=== PATIENT | male | born 1955 | race Caucasian/White ===

== ENCOUNTER → 2016-10-14 | Outpatient (CLI) | payer OTHER ==
[~2016-10-14] MED LIST: CLON0.2T PO; COCO1OIL2 PO; FERR325T5 PO; FLUO40CA8 PO; LAMO150T PO; LORA-741 PO; NIFE60TA57 PO; PRAV20TA PO; PRLSR20 PO; TAMS0.4C38 PO; TRIA1SPR4 NAE; WARF4TAB PO
[2016-10-14 12:58] LABS: PROTHROMBIN TIME (PATIENT) 94.5 SECONDS (9.0-12.0)
[2016-10-14 13:01] LABS: INR 8.1 (0.9-1.1)
== END | disposition home or self-care (01) ==
LOC: C.LABWYN 12:41
PROVIDERS: ATTEND Nurse Practitioner Family
DX: I82.409 Acute embolism and thrombosis of unspecified deep veins of unspecified lower extremity (principal); I26.99 Other pulmonary embolism without acute cor pulmonale

== ENCOUNTER → 2016-10-15 | Outpatient (CLI) | payer OTHER ==
[~2016-10-15] MED LIST changes: -LAMO150T PO; +LAMO150T32 PO; +OSEL75CA12 PO
[2016-10-15 08:17] LABS: PROTHROMBIN TIME (PATIENT) 66.8 SECONDS (9.0-12.0)
[2016-10-15 08:25] LABS: INR 5.8 (0.9-1.1)
--- NOTE | 2016-10-24 09:43 | CODING QUERY NO DIAGNOSIS ---
: 1955 TREATMENT RENDERED WITHOUT A DIAGNOSIS To promote full compliance with coding requirements relating to patient care, physician participation is requested in all cases of manager willow uncertainty. Please assist us with providing a diagnosis/symptom for the test(s) below: A diagnosis/symptom was not documented on your Order. A valid diagnosis/symptom is required to bill all insurances. Please remember that we are unable to code a diagnosis of rule out, probable, possible, questionable, or suspected. Tests that require a diagnosis: * PT/INR DOS: 10/15/16 DIAGNOSIS: Provider Signature: Date: Thank you Frida Gomez [employer] [facility] Information Management Once completed, please kindly fax back to [phone] For questions please call [phone]
== END | disposition home or self-care (01) ==
LOC: C.LABWYN 07:48
PROVIDERS: ATTEND Nurse Practitioner Family
DX: R79.1 Abnormal coagulation profile (principal); I82.409 Acute embolism and thrombosis of unspecified deep veins of unspecified lower extremity

== ENCOUNTER → 2016-10-16 | Outpatient (CLI) | payer OTHER ==
[2016-10-16 12:46] LABS: INR 1.4 (0.9-1.1); PROTHROMBIN TIME (PATIENT) 15.2 SECONDS (9.0-12.0)
--- NOTE | 2016-10-22 13:38 | CODING QUERY NO DIAGNOSIS ---
TREATMENT RENDERED WITHOUT A DIAGNOSIS 53 To promote full compliance with coding requirements relating to patient care, physician participation is requested in all cases of master craftsman uncertainty. Please assist us with providing a diagnosis/symptom for the test(s) below: A diagnosis/symptom was not documented on your Order. A valid diagnosis/symptom is required to bill all insurances. Please remember that we are unable to code a diagnosis of rule out, probable, possible, questionable, or suspected. DOS 10/16/16 Tests that require a diagnosis: * PT/INR DIAGNOSIS: Provider Signature: Date: Thank you [facility] Information Management Once completed, please kindly fax back to [phone] For questions please call [phone]
== END | disposition home or self-care (01) ==
LOC: C.LABWYN 14:34
PROVIDERS: ATTEND Internal Medicine
DX: I82.409 Acute embolism and thrombosis of unspecified deep veins of unspecified lower extremity (principal); I26.99 Other pulmonary embolism without acute cor pulmonale

== ENCOUNTER → 2016-10-23 | Outpatient (CLI) | payer OTHER ==
[~2016-10-23] MED LIST changes: -OSEL75CA12 PO
[2016-10-23 12:38] LABS: INR 2.2 (0.9-1.1)
== END | disposition home or self-care (01) ==
LOC: C.LABWYN 12:43
PROVIDERS: ATTEND Internal Medicine
DX: Z51.81 Encounter for therapeutic drug level monitoring (principal); Z79.01 Long term (current) use of anticoagulants

== ENCOUNTER → 2016-10-28 | Outpatient (CLI) | payer OTHER ==
[2016-10-28 12:46] LABS: ALT/SGPT 32 U/L (12-78); AST/SGOT 14 U/L (15-37); BLOOD UREA NITROGEN 27 mg/dl (7-18); CALCIUM 9.3 mg/dl (8.5-10.1); CARBON DIOXIDE 29 mmol/L (21-32); CHLORIDE 109 mmol/L (98-107); GLUCOSE 95 mg/dl (70-99); POTASSIUM 3.9 mmol/L (3.5-5.1); SODIUM 144 mmol/L (136-145)
[2016-10-28 12:49] LABS: ALB/GLOB RATIO 0.8 (0.9-2); ALKALINE PHOSPHATASE 83 U/L (45-117)
== END | disposition home or self-care (01) ==
LOC: C.LABWYN 10:57
PROVIDERS: ATTEND Student in an Organized Health Care Education/Training Program
DX: Z79.899 Other long term (current) drug therapy (principal)

== ENCOUNTER → 2016-11-13 | Outpatient (CLI) | payer OTHER ==
[2016-11-13 10:45] LABS: INR 5.5 (0.9-1.1); PROTHROMBIN TIME (PATIENT) 63.6 SECONDS (9.0-12.0)
== END | disposition home or self-care (01) ==
LOC: C.LABWYN 09:25
PROVIDERS: ATTEND Internal Medicine
DX: I48.91 Unspecified atrial fibrillation (principal)

== ENCOUNTER → 2016-11-17 | Outpatient (CLI) | payer OTHER ==
[2016-11-17 17:33] LABS: INR 2.3 (0.9-1.1); PROTHROMBIN TIME (PATIENT) 25.5 SECONDS (9.0-12.0)
== END | disposition home or self-care (01) ==
LOC: C.LABWYN 11:22
PROVIDERS: ATTEND Nurse Practitioner Family
DX: I82.409 Acute embolism and thrombosis of unspecified deep veins of unspecified lower extremity (principal); I26.99 Other pulmonary embolism without acute cor pulmonale

== ENCOUNTER → 2016-11-21 | Outpatient (CLI) | payer OTHER ==
[2016-11-21 08:53] LABS: INR 1.4 (0.9-1.1); PROTHROMBIN TIME (PATIENT) 15.4 SECONDS (9.0-12.0)
== END ==
LOC: C.LABWYN 08:04
PROVIDERS: ATTEND Nurse Practitioner Family
DX: I26.99 Other pulmonary embolism without acute cor pulmonale (principal); I82.409 Acute embolism and thrombosis of unspecified deep veins of unspecified lower extremity

== ENCOUNTER → 2016-11-24 | Outpatient (CLI) | payer OTHER ==
[2016-11-24 08:28] LABS: INR 1.8 (0.9-1.1); PROTHROMBIN TIME (PATIENT) 19.4 SECONDS (9.0-12.0)
== END | disposition home or self-care (01) ==
LOC: C.LABWYN 07:49
PROVIDERS: ATTEND Nurse Practitioner Family
DX: I82.409 Acute embolism and thrombosis of unspecified deep veins of unspecified lower extremity (principal); Z79.01 Long term (current) use of anticoagulants; Z51.81 Encounter for therapeutic drug level monitoring

== ENCOUNTER → 2016-12-09 | Outpatient (CLI) | payer OTHER ==
[2016-12-09 12:30] LABS: INR 3.4 (0.9-1.1); PROTHROMBIN TIME (PATIENT) 38.3 SECONDS (9.0-12.0)
== END | disposition home or self-care (01) ==
LOC: C.LABWYN 15:00
PROVIDERS: ATTEND Nurse Practitioner Family
DX: I26.99 Other pulmonary embolism without acute cor pulmonale (principal); I82.409 Acute embolism and thrombosis of unspecified deep veins of unspecified lower extremity

== ENCOUNTER → 2016-12-11 | Outpatient (CLI) | payer OTHER ==
[2016-12-11 12:28] LABS: INR 2.1 (0.9-1.1); PROTHROMBIN TIME (PATIENT) 23.1 SECONDS (9.0-12.0)
== END | disposition home or self-care (01) ==
LOC: C.LABWYN 17:48
PROVIDERS: ATTEND Internal Medicine
DX: Z51.81 Encounter for therapeutic drug level monitoring (principal); Z79.01 Long term (current) use of anticoagulants

== ENCOUNTER → 2016-12-16 | Outpatient (CLI) | payer OTHER ==
[2016-12-16 12:52] LABS: BLOOD UREA NITROGEN 28 mg/dl (7-18); BUN/CREATININE RATIO 11.2 (10-20); CALCIUM 9.5 mg/dl (8.5-10.1); CARBON DIOXIDE 25 mmol/L (21-32); CHLORIDE 108 mmol/L (98-107); GLUCOSE 94 mg/dl (70-99); POTASSIUM 4.3 mmol/L (3.5-5.1); SODIUM 144 mmol/L (136-145)
== END | disposition home or self-care (01) ==
LOC: C.LABWYN 09:58
PROVIDERS: ATTEND Student in an Organized Health Care Education/Training Program
DX: Z79.899 Other long term (current) drug therapy (principal)

== ENCOUNTER → 2016-12-18 | Outpatient (CLI) | payer OTHER ==
[2016-12-18 13:03] LABS: INR 1.5 (0.9-1.1); PROTHROMBIN TIME (PATIENT) 16.4 SECONDS (9.0-12.0)
== END | disposition home or self-care (01) ==
LOC: C.LABWYN 12:59
PROVIDERS: ATTEND Internal Medicine
DX: I82.409 Acute embolism and thrombosis of unspecified deep veins of unspecified lower extremity (principal); I26.99 Other pulmonary embolism without acute cor pulmonale

== ENCOUNTER → 2016-12-25 | Outpatient (CLI) | payer OTHER ==
[2016-12-25 13:42] LABS: INR 1.9 (0.9-1.1); PROTHROMBIN TIME (PATIENT) 20.5 SECONDS (9.0-12.0)
== END | disposition home or self-care (01) ==
LOC: C.LABWYN 07:15
PROVIDERS: ATTEND Internal Medicine
DX: I48.91 Unspecified atrial fibrillation (principal)

== ENCOUNTER → 2017-01-15 | Outpatient (CLI) | payer OTHER ==
[2017-01-15 12:56] LABS: BLOOD UREA NITROGEN 31 mg/dl (7-18); CALCIUM 9.2 mg/dl (8.5-10.1); CARBON DIOXIDE 26 mmol/L (21-32); CHLORIDE 108 mmol/L (98-107); GLUCOSE 93 mg/dl (70-99); POTASSIUM 4.6 mmol/L (3.5-5.1); SODIUM 141 mmol/L (136-145)
[2017-01-15 12:59] LABS: PROTHROMBIN TIME (PATIENT) 33.8 SECONDS (9.0-12.0)
== END | disposition home or self-care (01) ==
LOC: C.LABWYN 11:38
PROVIDERS: ATTEND Internal Medicine
DX: I82.409 Acute embolism and thrombosis of unspecified deep veins of unspecified lower extremity (principal); I26.99 Other pulmonary embolism without acute cor pulmonale; Z79.899 Other long term (current) drug therapy

== ENCOUNTER → 2017-01-29 | Outpatient (CLI) | payer OTHER ==
[2017-01-29 12:12] LABS: INR 2.8 (0.9-1.1); PROTHROMBIN TIME (PATIENT) 31.8 SECONDS (9.0-12.0)
== END | disposition home or self-care (01) ==
LOC: C.LABWYN 08:00
PROVIDERS: ATTEND Internal Medicine
DX: I82.409 Acute embolism and thrombosis of unspecified deep veins of unspecified lower extremity (principal); I26.99 Other pulmonary embolism without acute cor pulmonale

== ENCOUNTER → 2017-02-12 | Outpatient (CLI) | payer OTHER ==
[2017-02-12 12:34] LABS: INR 3.4 (0.9-1.1); PROTHROMBIN TIME (PATIENT) 38.5 SECONDS (9.0-12.0)
[2017-02-12 13:14] LABS: BLOOD UREA NITROGEN 36 mg/dl (7-18); BUN/CREATININE RATIO 13.7 (10-20); CALCIUM 9.1 mg/dl (8.5-10.1); CARBON DIOXIDE 27 mmol/L (21-32); CHLORIDE 111 mmol/L (98-107); GLUCOSE 86 mg/dl (70-99); POTASSIUM 4.3 mmol/L (3.5-5.1); SODIUM 145 mmol/L (136-145)
== END | disposition home or self-care (01) ==
LOC: C.LABWYN 09:41
PROVIDERS: ATTEND Internal Medicine
DX: I26.99 Other pulmonary embolism without acute cor pulmonale (principal); I82.409 Acute embolism and thrombosis of unspecified deep veins of unspecified lower extremity

== ENCOUNTER → 2017-02-19 | Outpatient (CLI) | payer OTHER ==
[2017-02-19 12:22] LABS: INR 1.2 (0.9-1.1); PROTHROMBIN TIME (PATIENT) 12.6 SECONDS (9.0-12.0)
== END | disposition home or self-care (01) ==
LOC: C.LABWYN 12:46
PROVIDERS: ATTEND Internal Medicine
DX: I82.409 Acute embolism and thrombosis of unspecified deep veins of unspecified lower extremity (principal); I26.99 Other pulmonary embolism without acute cor pulmonale

== ENCOUNTER → 2017-02-24 | Outpatient (CLI) | payer OTHER ==
[2017-02-24 12:32] LABS: INR 1.5 (0.9-1.1); PROTHROMBIN TIME (PATIENT) 16.1 SECONDS (9.0-12.0)
== END | disposition home or self-care (01) ==
LOC: C.LABWYN 09:03
PROVIDERS: ATTEND Internal Medicine
DX: I26.99 Other pulmonary embolism without acute cor pulmonale (principal); I82.409 Acute embolism and thrombosis of unspecified deep veins of unspecified lower extremity

== ENCOUNTER → 2017-03-03 | Outpatient (CLI) | payer OTHER ==
[2017-03-03 12:42] LABS: BASO % 0.4 %; BASO ABS # 0.03 K/uL (0-0.2); COMPLETE YES; EOS % 1.4 %; HEMATOCRIT 35.7 % (42-52); IG% 0.4 %; LYMPH % 14.1 %; LYMPH ABS # 1.11 K/uL (1.2-3.4); MEAN CELL VOLUME 90.2 fL (80-100); MEAN CORPUSCULAR HEMOGLOBIN 29.3 pg (25-34); MEAN CORPUSCULAR HGB CONC 32.5 g/dl (32-36); MEAN PLATELET VOLUME 9.3 fL (7.4-10.4); MONO % 10.1 %; NEUT % 73.6 %; PLATELET COUNT 403 K/uL (130-400); RED BLOOD COUNT 3.96 M/uL (4.7-6.1)
[2017-03-03 14:51] LABS: BLOOD UREA NITROGEN 32 mg/dl (7-18); BUN/CREATININE RATIO 11.3 (10-20); CALCIUM 9.3 mg/dl (8.5-10.1); CARBON DIOXIDE 27 mmol/L (21-32); CHLORIDE 109 mmol/L (98-107); GLUCOSE 87 mg/dl (70-99); HDL CHOLESTEROL 54 mg/dl; POTASSIUM 4.3 mmol/L (3.5-5.1); SODIUM 144 mmol/L (136-145); TRIGLYCERIDES 146 mg/dl (0-150); VERY LOW DENSITY LIPOPROT CALC 29 mg/dl
[2017-03-03 15:01] LABS: CHOLESTEROL 176 mg/dl (0-200); CHOLESTEROL/HDL RATIO 3.3; LDL CHOLESTEROL CALCULATED 93 mg/dl; THYROID STIMULATING HORMONE 0.603 uIu/ml (0.300-4.500)
== END | disposition home or self-care (01) ==
LOC: C.LABWYN 10:36
PROVIDERS: ATTEND Student in an Organized Health Care Education/Training Program
DX: Z79.899 Other long term (current) drug therapy (principal)

== ENCOUNTER → 2017-03-05 | Outpatient (CLI) | payer OTHER ==
[2017-03-05 12:20] LABS: INR 1.3 (0.9-1.1); PROTHROMBIN TIME (PATIENT) 14.3 SECONDS (9.0-12.0)
== END | disposition home or self-care (01) ==
LOC: C.LABWYN 15:57
PROVIDERS: ATTEND Internal Medicine
DX: I82.409 Acute embolism and thrombosis of unspecified deep veins of unspecified lower extremity (principal); I26.99 Other pulmonary embolism without acute cor pulmonale

== ENCOUNTER → 2017-03-19 | Outpatient (CLI) | payer OTHER ==
[2017-03-19 12:25] LABS: INR 2.7 (0.9-1.1); PROTHROMBIN TIME (PATIENT) 30.4 SECONDS (9.0-12.0)
== END | disposition home or self-care (01) ==
LOC: C.LABWYN 13:38
PROVIDERS: ATTEND Internal Medicine
DX: Z79.01 Long term (current) use of anticoagulants (principal)

== ENCOUNTER → 2017-03-26 | Outpatient (CLI) | payer OTHER ==
[2017-03-26 12:23] LABS: INR 4.1 (0.9-1.1); PROTHROMBIN TIME (PATIENT) 46.1 SECONDS (9.0-12.0)
== END | disposition home or self-care (01) ==
LOC: C.LABWYN 12:03
PROVIDERS: ATTEND Internal Medicine
DX: I26.99 Other pulmonary embolism without acute cor pulmonale (principal)

== ENCOUNTER → 2017-03-31 | Outpatient (CLI) | payer OTHER ==
[2017-03-31 13:39] LABS: PROTHROMBIN TIME (PATIENT) 22.6 SECONDS (9.0-12.0)
== END | disposition home or self-care (01) ==
LOC: C.LABWYN 15:08
PROVIDERS: ATTEND Internal Medicine
DX: I26.99 Other pulmonary embolism without acute cor pulmonale (principal); I82.409 Acute embolism and thrombosis of unspecified deep veins of unspecified lower extremity

== ENCOUNTER → 2017-04-30 | Outpatient (CLI) | payer OTHER ==
[2017-04-30 12:48] LABS: INR 1.8 (0.9-1.1); PROTHROMBIN TIME (PATIENT) 19.4 SECONDS (9.0-12.0)
--- NOTE | 2017-05-04 14:26 | CODING QUERY NO DIAGNOSIS ---
TREATMENT RENDERED WITHOUT A DIAGNOSIS To promote full compliance with coding requirements relating to patient care, physician participation is requested in all cases of millinery worker uncertainty. Please assist us with providing a diagnosis/symptom for the test(s) below: A diagnosis/symptom was not documented on your Order. A valid diagnosis/symptom is required to bill all insurances. Please remember that we are unable to code a diagnosis of rule out, probable, possible, questionable, or suspected. DATE OF SERVICE: 04/30/17 Tests that require a diagnosis: * PT/INR DIAGNOSIS: Provider Signature: Date: [facility] Once completed, please kindly fax back to [phone] For questions please call [phone]
== END | disposition home or self-care (01) ==
LOC: C.LABWYN 13:00
PROVIDERS: ATTEND Nurse Practitioner Adult Health
DX: I82.503 Chronic embolism and thrombosis of unspecified deep veins of lower extremity, bilateral (principal)

== ENCOUNTER → 2017-05-05 | Outpatient (CLI) | payer OTHER ==
[2017-05-05 12:30] LABS: INR 1.7 (0.9-1.1); PROTHROMBIN TIME (PATIENT) 18.8 SECONDS (9.0-12.0)
== END | disposition home or self-care (01) ==
LOC: C.LABWYN 15:08
PROVIDERS: ATTEND Nurse Practitioner Adult Health
DX: Z51.81 Encounter for therapeutic drug level monitoring (principal); Z79.01 Long term (current) use of anticoagulants

== ENCOUNTER → 2017-05-07 | Outpatient (CLI) | payer OTHER ==
[2017-05-07 12:18] LABS: INR 2.5 (0.9-1.1); PROTHROMBIN TIME (PATIENT) 28.1 SECONDS (9.0-12.0)
== END | disposition home or self-care (01) ==
LOC: C.LABWYN 13:29
PROVIDERS: ATTEND Nurse Practitioner Adult Health
DX: Z79.01 Long term (current) use of anticoagulants (principal); Z51.81 Encounter for therapeutic drug level monitoring; I82.409 Acute embolism and thrombosis of unspecified deep veins of unspecified lower extremity; I26.99 Other pulmonary embolism without acute cor pulmonale

== ENCOUNTER → 2017-05-21 | Outpatient (CLI) | payer OTHER ==
[2017-05-21 12:47] LABS: PROTHROMBIN TIME (PATIENT) 68.3 SECONDS (9.0-12.0)
[2017-05-21 13:07] LABS: INR 5.9 (0.9-1.1)
== END | disposition home or self-care (01) ==
LOC: C.LABWYN 16:53
PROVIDERS: ATTEND Internal Medicine
DX: I82.409 Acute embolism and thrombosis of unspecified deep veins of unspecified lower extremity (principal); I26.99 Other pulmonary embolism without acute cor pulmonale; Z79.01 Long term (current) use of anticoagulants

== ENCOUNTER → 2017-05-22 | Outpatient (CLI) | payer OTHER ==
[2017-05-22 09:19] LABS: BLOOD UREA NITROGEN 32 mg/dl (7-18); CALCIUM 9.5 mg/dl (8.5-10.1); CARBON DIOXIDE 25 mmol/L (21-32); CHLORIDE 109 mmol/L (98-107); GLUCOSE 135 mg/dl (70-99); POTASSIUM 4.6 mmol/L (3.5-5.1); SODIUM 140 mmol/L (136-145)
[2017-05-22 09:28] LABS: INR 4.8 (0.9-1.1); PROTHROMBIN TIME (PATIENT) 54.7 SECONDS (9.0-12.0)
== END | disposition home or self-care (01) ==
LOC: C.LABWYN 07:54
PROVIDERS: ATTEND Neurological Surgery
DX: I82.409 Acute embolism and thrombosis of unspecified deep veins of unspecified lower extremity (principal); I26.99 Other pulmonary embolism without acute cor pulmonale; Z79.899 Other long term (current) drug therapy

== ENCOUNTER → 2017-05-23 | Outpatient (CLI) | payer OTHER ==
[2017-05-23 14:21] LABS: INR 2.3 (0.9-1.1); PROTHROMBIN TIME (PATIENT) 25.7 SECONDS (9.0-12.0)
== END | disposition home or self-care (01) ==
LOC: C.LAB 13:49
PROVIDERS: ATTEND Internal Medicine
DX: I82.409 Acute embolism and thrombosis of unspecified deep veins of unspecified lower extremity (principal); I26.99 Other pulmonary embolism without acute cor pulmonale

== ENCOUNTER → 2017-05-26 | Outpatient (CLI) | payer OTHER ==
[2017-05-26 12:40] LABS: INR 1.4 (0.9-1.1); PROTHROMBIN TIME (PATIENT) 15.5 SECONDS (9.0-12.0)
== END | disposition home or self-care (01) ==
LOC: C.LABWYN 15:22
PROVIDERS: ATTEND Internal Medicine
DX: I82.409 Acute embolism and thrombosis of unspecified deep veins of unspecified lower extremity (principal); I26.99 Other pulmonary embolism without acute cor pulmonale

== ENCOUNTER → 2017-06-02 | Outpatient (CLI) | payer OTHER ==
[2017-06-02 12:31] LABS: INR 1.5 (0.9-1.1); PROTHROMBIN TIME (PATIENT) 16.7 SECONDS (9.0-12.0)
== END | disposition home or self-care (01) ==
LOC: C.LABWYN 12:45
PROVIDERS: ATTEND Nurse Practitioner Adult Health
DX: Z51.81 Encounter for therapeutic drug level monitoring (principal); Z79.01 Long term (current) use of anticoagulants

== ENCOUNTER → 2017-06-04 | Outpatient (CLI) | payer OTHER ==
[2017-06-04 12:54] LABS: INR 1.7 (0.9-1.1); PROTHROMBIN TIME (PATIENT) 18.1 SECONDS (9.0-12.0)
== END | disposition home or self-care (01) ==
LOC: C.LABWYN 09:55
PROVIDERS: ATTEND Nurse Practitioner Adult Health
DX: Z51.81 Encounter for therapeutic drug level monitoring (principal); Z79.01 Long term (current) use of anticoagulants

== ENCOUNTER → 2017-06-09 | Outpatient (CLI) | payer OTHER ==
[2017-06-09 12:31] LABS: INR 2.2 (0.9-1.1); PROTHROMBIN TIME (PATIENT) 24.2 SECONDS (9.0-12.0)
== END | disposition home or self-care (01) ==
LOC: C.LABWYN 13:06
PROVIDERS: ATTEND Nurse Practitioner Adult Health
DX: I82.409 Acute embolism and thrombosis of unspecified deep veins of unspecified lower extremity (principal); I26.99 Other pulmonary embolism without acute cor pulmonale

== ENCOUNTER → 2017-06-23 | Outpatient (CLI) | payer OTHER ==
[2017-06-23 13:49] LABS: BLOOD UREA NITROGEN 43 mg/dl (7-18); BUN/CREATININE RATIO 16.1 (10-20); CALCIUM 9.8 mg/dl (8.5-10.1); CARBON DIOXIDE 27 mmol/L (21-32); CHLORIDE 111 mmol/L (98-107); GLUCOSE 98 mg/dl (70-99); POTASSIUM 4.4 mmol/L (3.5-5.1); SODIUM 144 mmol/L (136-145)
== END ==
LOC: C.LABWYN 12:57
PROVIDERS: ATTEND Student in an Organized Health Care Education/Training Program
DX: Z51.81 Encounter for therapeutic drug level monitoring (principal); Z79.899 Other long term (current) drug therapy

== ENCOUNTER → 2017-06-30 | Outpatient (CLI) | payer OTHER ==
[2017-06-30 12:36] LABS: INR 5.2 (0.9-1.1); PROTHROMBIN TIME (PATIENT) 59.6 SECONDS (9.0-12.0)
== END | disposition home or self-care (01) ==
LOC: C.LABWYN 15:41
PROVIDERS: ATTEND Internal Medicine
DX: Z51.81 Encounter for therapeutic drug level monitoring (principal); Z79.01 Long term (current) use of anticoagulants

== ENCOUNTER → 2017-07-03 | Outpatient (CLI) | payer OTHER ==
[2017-07-03 08:16] LABS: PROTHROMBIN TIME (PATIENT) 21.8 SECONDS (9.0-12.0)
== END | disposition home or self-care (01) ==
LOC: C.LABWYN 07:47
PROVIDERS: ATTEND Internal Medicine
DX: Z51.81 Encounter for therapeutic drug level monitoring (principal); Z79.01 Long term (current) use of anticoagulants

== ENCOUNTER → 2017-07-07 | Outpatient (CLI) | payer OTHER ==
[2017-07-07 12:25] LABS: PROTHROMBIN TIME (PATIENT) 22.3 SECONDS (9.0-12.0)
== END | disposition home or self-care (01) ==
LOC: C.LABWYN 15:04
PROVIDERS: ATTEND Internal Medicine
DX: Z51.81 Encounter for therapeutic drug level monitoring (principal); Z79.01 Long term (current) use of anticoagulants

== ENCOUNTER → 2017-07-14 | Outpatient (CLI) | payer OTHER ==
[2017-07-14 12:39] LABS: INR 3.7 (0.9-1.1); PROTHROMBIN TIME (PATIENT) 41.7 SECONDS (9.0-12.0)
== END | disposition home or self-care (01) ==
LOC: C.LABWYN 12:03
PROVIDERS: ATTEND Internal Medicine
DX: Z79.01 Long term (current) use of anticoagulants (principal); I82.409 Acute embolism and thrombosis of unspecified deep veins of unspecified lower extremity; I26.99 Other pulmonary embolism without acute cor pulmonale

== ENCOUNTER → 2017-07-15 | Outpatient (CLI) | payer OTHER ==
--- NOTE | 2017-07-15 11:15 | DIAGNOSTIC IMAGING REPORT ---
BRAIN WITHOUT CONTRAST CLINICAL HISTORY: 62 years-old Male presenting with CEREBROVASCULAR DISEASE, MEMORY LOSS. TECHNIQUE: Multisequence, multiplanar MR imaging of the brain was performed without the use of intravenous contrast. IV contrast: None. COMPARISON: None. FINDINGS: Proportional ventricular and sulcal prominence, likely age-related parenchymal volume loss. Periventricular and subcortical white matter T2/FLAIR hyperintensity, nonspecific but likely indicative of chronic small vessel ischemic change. The callosal angle is within the range of normal. No mass effect or midline shift. No restricted diffusion to suggest acute ischemia. No hemorrhage. No extra-axial fluid collection. T2 skull base flow voids preserved. Bone marrow signal intensity within the calvarium within normal limits. Mucosal thickening in the bilateral maxillary sinuses, right greater than left. IMPRESSION: 1. No acute intracranial abnormality. No convincing evidence of normal pressure hydrocephalus. 2. Chronic small vessel ischemic change. Electronically signed by: Pb Felton M.D. 07/15/2017 11:14 AM Dictated Date/Time: 07/15/2017 11:09 AM
== END ==
LOC: C.MRI 10:03
PROVIDERS: ATTEND Psychiatry & Neurology Neurology
DX: I67.9 Cerebrovascular disease, unspecified (principal); R41.3 Other amnesia

== ENCOUNTER → 2017-07-20 | Outpatient (CLI) | payer OTHER ==
[2017-07-20 10:07] LABS: INR 1.8 (0.9-1.1); PROTHROMBIN TIME (PATIENT) 19.4 SECONDS (9.0-12.0)
== END | disposition home or self-care (01) ==
LOC: C.LABWYN 09:03
PROVIDERS: ATTEND Nurse Practitioner Adult Health
DX: I82.409 Acute embolism and thrombosis of unspecified deep veins of unspecified lower extremity (principal); I26.99 Other pulmonary embolism without acute cor pulmonale

== ENCOUNTER → 2017-07-27 | Outpatient (CLI) | payer OTHER ==
[2017-07-27 12:35] LABS: INR 2.6 (0.9-1.1); PROTHROMBIN TIME (PATIENT) 28.4 SECONDS (9.0-12.0)
== END | disposition home or self-care (01) ==
LOC: C.LABWYN 14:15
PROVIDERS: ATTEND Internal Medicine
DX: I48.91 Unspecified atrial fibrillation (principal)

== ENCOUNTER → 2017-09-01 | Outpatient (CLI) | payer OTHER ==
[2017-09-01 13:00] LABS: BLOOD UREA NITROGEN 36 mg/dl (7-18); BUN/CREATININE RATIO 13.1 (10-20); CALCIUM 9.5 mg/dl (8.5-10.1); CARBON DIOXIDE 28 mmol/L (21-32); CHLORIDE 108 mmol/L (98-107); CREATININE 2.76 mg/dl (0.60-1.40); GLUCOSE 135 mg/dl (70-99); POTASSIUM 4.9 mmol/L (3.5-5.1); SODIUM 140 mmol/L (136-145)
== END | disposition home or self-care (01) ==
LOC: C.LABWYN 12:15
PROVIDERS: ATTEND Student in an Organized Health Care Education/Training Program
DX: Z51.81 Encounter for therapeutic drug level monitoring (principal); Z79.899 Other long term (current) drug therapy

== ENCOUNTER → 2017-09-08 | Outpatient (CLI) | payer OTHER ==
[2017-09-08 12:48] LABS: PROTHROMBIN TIME (PATIENT) 22.5 SECONDS (9.0-12.0)
== END | disposition home or self-care (01) ==
LOC: C.LABWYN 12:12
PROVIDERS: ATTEND Internal Medicine
DX: I82.409 Acute embolism and thrombosis of unspecified deep veins of unspecified lower extremity (principal); I26.99 Other pulmonary embolism without acute cor pulmonale

== ENCOUNTER → 2017-09-10 | Outpatient (CLI) | payer OTHER ==
--- NOTE | 2017-09-11 06:10 | PAP/PSG TECHNICIAN REPORT ---
[facility] Patient Account Liaison Polysomnogram Report Study name: None Report date: 09/11/2017 Study date: 09/10/2017 Referring Physician: DR. HOUSTON Name: TENNILLE PEARSON Interpreting Physician: Nabeel Houston M.D. Date of : 1955 Patient Account Liaison: Terry Curiel RPSGT. Sex: Male Age: 62 StudyType: PSG Weight: 205 lbs 16 inches Height: 62 years, Height 5' 11" Neck Circum: BMI: 28.59 Medications: ACETAMINOPHEN 325 MG, CLONIDINE HCL 0.2 MG, DOC-Q-LACE, FLUOXETINE HCL 40 MG, GEODON 60 MG, LAMOTRIGINE 150 MG, LITHIUM CARBONATE 150 MG, LORAZEPAM 0.5 MG, NASACORT, NIFEDIPINE CR 60 MG, OMEPRAZOLE 20 MG, ONDANSETRON 4 MG, PRAVASTATIN SODIUM, TAMSULOSIN HCL 0.4 MG, VENTOLIN HFA 108 90 BASE, WARFARIN SODIUM 4 MG Patient History PATIENT HAS HISTORY OF BIPOLAR DEPRESSION, CHRONIC KIDNEY DISEASE, GERD, HYPERTENSION AND DIMENTIA. HE ALSO HAS HISTORY OF SHARMAINE AND WORE CPAP UP UNTIL A FEW YEARS AGO. HE IS HERE TODAY FOR AN EVALUATION FOR SHARMAINE. ESS = 1 RM 7 Parameters Monitored NPSG: E1-M2, E2-M1, Fp1-M2, Fp2-M1, F3-M2, F4-M2, F4-M1, C3-M2, C4-M2, C4-M1, O1-M2, O2-M2, O2-M1, T3-M2, T4-M1, P3-M2, P4-M1, CHIN1, CHIN2, HR, EKG, Legs, PFLOW, SNOR, FLOW, CFLOW, Tidal Volume, THOR, ABDO, SpO2, PLTH, CPRESS, ETCO2 Wave, ETCO2, pH Sleep Architecture Sleep Stages Time at Lights Off 9:58:45 PM STAGES Time (min.) TST (%) Time at Lights On 5:31:45 AM Wake 50.0 -- Total Recording Time (TRT) 453.50 min. N1 9.5 2 Total Sleep Period (TSP) 438.0 min. N2 272.0 67 Total Sleep Time (TST) 403.0min. N3 65.0 16 Awake Time 50.0 min. REM 56.5 14 Wake after Sleep Onset 35.0 min. Sleep Efficiency (SE) 89 % Sleep Onset Latency (BETTY) 15.0 min. Number of Stage 1 Shifts None Awakenings 9 Stage Changes 38 Number of REM periods 3 REM 56.5 14 REM Latency 109.0 min. NREM 346.5 86 Body Position Analysis Supine Right Left Side Prone Vertical Total Sleep Time (min.) 0.0 252.2 150.8 403.00 0.0 0.0 Total Sleep Time (%) 0% 63% 37% 100 0% N/A% Total Sleep Time REM (min.) 0.0 38.5 18.0 None 0.0 0.0 Total Sleep Time NREM (min.) 0.0 213.7 132.8 None 0.0 0.0 Intermittent Wake (min.) 0.0 16.0 34.0 None 0.0 0.0 Total Sleep Period (%) 0% None None None None None Arousals Myoclonus (PLM) * Events Count Index Events Count Index Spontaneous 13 2 Events Awake (PLMW) 29 34.8 Respiratory 10 1.5 Events Asleep w/ Arousal (PLMA) 1 0.1 PLM 1 0 Events Asleep w/o Arousal (PLMS) 61 9.1 Snoring 15 2 Total Asleep 62 9.2 Total 38 6 Total 91 12 Respiratory Analysis * CA OA MA CH H RERA Total Count 0 104 1 0 30 3 135 Index 0.0 15.5 0.1 0 4.5 0 20.5 Mean Duration 0.0 15.7 17.7 0.00 15.3 14.1 15.6 Longest Duration 0.0 22.4 17.7 0.00 17.7 15.0 22.5 Respiratory Event Summary Total Supine ~Supine Right Left Prone REM NREM Apneas Count 105 N/A 105 92 13 N/A 11 94 Index 15.6 N/A 16 21.9 5.2 N/A 12 16 Hypopneas (4% Desat) Count 30 N/A 30 15 15 N/A 12 18 Index 4.5 N/A 4 3.6 6.0 N/A 12.7 3.1 Apneas & All Hypopneas Count 135 N/A 135 107 28 N/A 23 112 Index 20.1 N/A 20 25 11 N/A 24.4 19.4 Respiratory Events (Janitor+All Hyp+RERA) Count 135 N/A 138 108 30 N/A 23 112 Index 20.5 N/A 21 25.7 11.9 N/A 25.5 19.7 Respiratory Related Arousal Count 10 N/A 10 5 5 N/A 2 8 Index 1.5 N/A 1 1 2 N/A 2 1 Snoring Analysis Supine Right Left Prone REM NREM Total Snore duration 109.2 min Snores count N/A 2,331 962 N/A 531 2,762 3,293 Snore mean duration 2.0 Sec Snores index N/A 555 383 N/A 563.9 478.3 490.3 TST with snoring (%) 27.1% Desaturation Event Summary: Minimum %SpO2 Event Count Mean/Min/Max Duration(sec.) Desaturation Index % Time In Bed > 90 64 22.2 / 10.3 / 52.8 11.9 74.0 86 - 90 6 26.2 / 17.3 / 35.8 3.2 25.9 81 - 85 0 N/A 0.0 0.0 76 - 80 0 N/A 0.0 0.0 71 - 75 0 N/A 0.0 0.0 66 - 70 0 N/A 0.0 0.0 61 - 65 0 N/A 0.0 0.0 56 - 60 0 N/A 0.0 0.0 51 - 55 0 N/A 0.0 0.0 < 50 0 N/A 0.0 0.0 Total REM NREM Awake <50% 0.0 min. 0.0 min. 0.0 min. 0.0 min. 51 - 60% 0.0 min. 0.0 min. 0.0 min. 0.0 min. 61 - 70% 0.0 min. 0.0 min. 0.0 min. 0.0 min. 71 - 80% 0.2 min. 0.0 min. 0.0 min. 0.2 min. 81 - 90% 113.3 min. 11.0 min. 100.0 min. 2.3 min. 91 - 100% 323.0 min. 44.3 min. 246.2 min. 32.5 min. Average 92 92 92 92 Minimum SpO2 80 86 86 80 Desaturation Event Index 8.7 15.9 8.7 2.4 # Desat. Events below 89% 14 7 6 1 Time(%) with Saturation below 89% 0.9 0.4 0.4 0.1 Time(min.) with Saturation below 89% 3.8 1.6 1.9 0.3 Time (mins) REM (mins) NREM (mins) % of TST SpO2 Below 90% 36 11 N25 5.0 SpO2 Below 88% 6 0 0 0 Heart Rate Analysis Min (bpm) Max (bpm) Average (bpm) Awake 50 80 59 NREM 47 69 52 REM 48 70 58 Overall 47 70 53 Supplemental O2 Values Minimum O2 level: None Value Start Time End Time Patient Account Liaison Comments Mr. Pearson slept in the right and left positions. PAC's noted. Leg movements noted. No bruxism noted. Snoring was noted and scored as a 3 on a scale of 1 through 5. (0=no snoring, 5=snoring loud enough to be heard through a closed door or down the quesada way) Mr. Pearson awoke to use the restroom 3 times during the night. Mr. Pearson stated I slept as well as I do when I am in my own bed. The final report will be interpreted and signed by a sleep physician. The completed physician report will then be placed in the patient medical record. Therapy (cm H2O) 0 TIB (min.) 453.0 TST (min.) 403.0 Sleep Onset (min.) 15.0 REM Onset From Sleep (min.) 109.0 Sleep Efficiency % 89 Wakefulness (%) 11 Wakefulness (min.) 50.0 NREM 1 (%) 2 NREM 1 (min.) 9.5 NREM 2 (%) 67 NREM 2 (min.) 272.0 NREM 3 (%) 16 NREM 3 (min.) 65.0 REM (%) 14 REM (min.) 56.5 # Arousals 38 Arousal Index 6 # Snore 3,293 Snore Index 490.3 AHI 20.1 AHI Supine N/A AHI Non-Supine 20 NREM AHI 19.4 REM AHI 24.4 RDI 20.5 # Obstructive Apnea 104 # Central Apnea 0 # Mixed Apnea 1 # Hypopneas 30 RERAs 3 Total Respiratory Events 138 Time Below SpO2 89% (min.) 3.5 Mean NREM SpO2 (%) 92 Mean REM SpO2 (%) 92 Mean Sleep SpO2 (%) 92 Min NREM SpO2 (%) 86 Min REM SpO2 (%) 86 Position Supine (min.) 0.0 Position Non-supine (min.) 403.0 LM Index Sleep 9.2 LM Index NREM 6.4 LM Index REM 26.5 Mean Heart Rate (bpm) 53 Min Heart Rate (bpm) 47
--- NOTE | 2017-09-11 13:55 | POLYSOMNOGRAPH REPORT ---
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 Knowles for reevaluation of sleep apnea. He has history of SHARMAINE and previously wore CPAP until several years ago. SLEEP ARCHITECTURE: Total sleep period was 438 minutes. Total sleep time was 403 minutes divided between 346.5 minutes of non-REM sleep and 56.5 minutes of REM sleep. Sleep onset latency was 15 minutes. REM latency was 109 minutes. Sleep efficiency was 89%. Awake after sleep onset was 35 minutes. Sleep consisted of stage N1 2%, stage N2 67%, stage N3 16%, and REM 14%. AROUSAL DATA: Thirty-eight arousals were recorded for an index of 6 per hour. PLM DATA: Sixty-two limb movements during sleep were noted for an index of 9.2 per hour with arousal index of 0.1 per hour. RESPIRATORY DATA: Moderate sleep apnea was documented. The AHI was 20. There was 104 obstructive apneic episodes. The longest apneic episode was 22.4 seconds. There were 30 hypopneic episodes. The longest duration of hypopnea was 17.7 seconds. There was 1 mixed apneic episode. OXIMETRY DATA: Transient mild nocturnal hypoxemia was seen. Oxygen krystian was 86%. The mean saturation was 92%. Time below 88% was 6 minutes. EKG: Heart rates ranged from 47 to 70 beats per minute. PACs were noted. PET FOOD DEBONER'S COMMENTS: The patient slept in the right and left positions. Snoring was moderate, rated 3 on a scale of 1-5. IMPRESSION: Moderate sleep apnea/hypopnea with an AHI of 20 with transient nocturnal hypoxemia. RECOMMENDATIONS: The patient may benefit from a repeat sleep study with CPAP. DENIS
== END | disposition home or self-care (01) ==
LOC: C.NEUR 21:00
PROVIDERS: ATTEND Internal Medicine Pulmonary Disease
DX: I67.9 Cerebrovascular disease, unspecified (principal); R41.3 Other amnesia; G47.33 Obstructive sleep apnea (adult) (pediatric)

== ENCOUNTER → 2017-09-29 | Outpatient (CLI) | payer OTHER ==
[~2017-09-29] MED LIST changes: +ACET-1311 PO; +ACET-1693 PO; +AMLO10TA3 PO; +CARB0.5D28 OPB; +IMD/2 PO; +LAMO100T16 PO; +LAMO150T PO; -LAMO150T32 PO; +LTHSR/300 PO; +ONDA4TAB46 PO; +THROLOZ22 PO; +WARF3TAB6 PO; +ZIPR60CA PO
[2017-09-29 12:58] LABS: INR 2.4 (0.9-1.1)
== END | disposition home or self-care (01) ==
LOC: C.LABWYN 14:08
PROVIDERS: ATTEND Internal Medicine
DX: Z86.711 Personal history of pulmonary embolism (principal); I82.409 Acute embolism and thrombosis of unspecified deep veins of unspecified lower extremity

== ENCOUNTER → 2017-10-20 | Outpatient (CLI) | payer OTHER ==
[~2017-10-20] MED LIST changes: -ACET-1311 PO; -ACET-1693 PO; -AMLO10TA3 PO; -CARB0.5D28 OPB; -IMD/2 PO; -LAMO100T16 PO; -LTHSR/300 PO; -ONDA4TAB46 PO; -THROLOZ22 PO; -WARF3TAB6 PO; -ZIPR60CA PO
[2017-10-20 12:38] LABS: INR 2.9 (0.9-1.1)
== END | disposition home or self-care (01) ==
LOC: C.LABWYN 10:28
PROVIDERS: ATTEND Internal Medicine
DX: I82.409 Acute embolism and thrombosis of unspecified deep veins of unspecified lower extremity (principal); I26.99 Other pulmonary embolism without acute cor pulmonale

== ENCOUNTER → 2017-10-26 | Outpatient (CLI) | payer OTHER ==
--- NOTE | 2017-10-27 06:02 | PAP/PSG TECHNICIAN REPORT ---
[facility] Chin Strap Cutter Polysomnogram Report Study name: None Report date: 10/27/2017 Study date: 10/26/2017 Referring Physician: Immanuel Knowles D.O. Name: TENNILLE PEARSON Interpreting Physician: Nabeel Houston M.D. Date of : 1955 Chin Strap Cutter: Lashanda Alvarez, PSGT. Sex: Male Age: 62 StudyType: PSG Weight: 175 lbs Height: 62 years, Height 5' 6" BMI: 28.24 Medications: NO MEDICATIONS LISTED IN CHART Patient History 62-YEAR-OLD MALE PRESENTS [facility] FOR A TITRATION SLEEP STUDY. PATIENT HAD A BASELINE DONE HERE ON 09/10/17 WITH AN AHI OF 20. Parameters Monitored NPSG: E1-M2, E2-M1, Fp1-M2, Fp2-M1, F3-M2, F4-M2, F4-M1, C3-M2, C4-M2, C4-M1, O1-M2, O2-M2, O2-M1, T3-M2, T4-M1, P3-M2, P4-M1, CHIN1, CHIN2, HR, EKG, Legs, PFLOW, SNOR, FLOW, CFLOW, Tidal Volume, THOR, ABDO, SpO2, PLTH, CPRESS, ETCO2 Wave, ETCO2, pH Sleep Architecture Sleep Stages Time at Lights Off 10:19:33 PM STAGES Time (min.) TST (%) Time at Lights On 5:02:33 AM Wake 171.5 -- Total Recording Time (TRT) 408.00 min. N1 21.5 9 Total Sleep Period (TSP) 309.5 min. N2 190.0 82 Total Sleep Time (TST) 231.0min. N3 0.0 0 Awake Time 177.0 min. REM 19.5 8 Wake after Sleep Onset 91.0 min. Sleep Efficiency (SE) 57 % Sleep Onset Latency (BETTY) 81.0 min. Number of Stage 1 Shifts None Awakenings 6 Stage Changes 21 Number of REM periods 3 REM 19.5 8 REM Latency 285.5 min. NREM 211.5 92 Body Position Analysis Supine Right Left Side Prone Vertical Total Sleep Time (min.) 0.2 0.0 231.0 231.00 0.0 0.0 Total Sleep Time (%) 0% 0% 100% 100 0% N/A% Total Sleep Time REM (min.) 0.0 0.0 19.5 None 0.0 0.0 Total Sleep Time NREM (min.) 0.0 0.0 211.5 None 0.0 0.0 Intermittent Wake (min.) 0.2 31.5 139.9 None 0.0 0.0 Total Sleep Period (%) 0% None None None None None Arousals Myoclonus (PLM) * Events Count Index Events Count Index Spontaneous 47 12 Events Awake (PLMW) 1 0.3 Respiratory 0 0.0 Events Asleep w/ Arousal (PLMA) 2 0.5 PLM 2 1 Events Asleep w/o Arousal (PLMS) 33 8.6 Snoring 11 3 Total Asleep 35 9.1 Total 60 16 Total 36 5 Respiratory Analysis * CA OA MA CH H RERA Total Count 0 1 0 0 0 0 1 Index 0.0 0.3 0.0 0 0.0 0 0.3 Mean Duration 0.0 15.5 0.0 0.00 0.0 0.0 15.5 Longest Duration 0.0 15.5 0.0 0.00 0.0 0.0 15.5 Respiratory Event Summary Total Supine ~Supine Right Left Prone REM NREM Apneas Count 1 N/A 1 N/A 1 N/A 0 1 Index 0.3 N/A 0 N/A 0.3 N/A 0 0 Hypopneas (4% Desat) Count 0 N/A 0 N/A 0 N/A 0 0 Index 0.0 N/A 0 N/A 0.0 N/A 0.0 0.0 Apneas & All Hypopneas Count 1 N/A 1 N/A 1 N/A 0 1 Index 0.3 N/A 0 N/A 0 N/A 0.0 0.3 Respiratory Events (Canteen Operator+All Hyp+RERA) Count 1 N/A 1 N/A 1 N/A 0 1 Index 0.3 N/A 0 N/A 0.3 N/A 0.0 0.3 Respiratory Related Arousal Count 0 N/A 0 N/A 0 N/A 0 0 Index 0.0 N/A 0 N/A 0 N/A 0 0 Snoring Analysis Supine Right Left Prone REM NREM Total Snore duration 14.9 min Snores count N/A N/A 630 N/A 3 627 630 Snore mean duration 1.4 Sec Snores index N/A N/A 164 N/A 9.2 177.9 163.6 TST with snoring (%) 6.4% Desaturation Event Summary: Minimum %SpO2 Event Count Mean/Min/Max Duration(sec.) Desaturation Index % Time In Bed > 90 0 N/A 0.0 86.1 86 - 90 0 N/A 0.0 13.8 81 - 85 0 N/A 0.0 0.1 76 - 80 0 N/A 0.0 0.0 71 - 75 0 N/A 0.0 0.0 66 - 70 0 N/A 0.0 0.0 61 - 65 0 N/A 0.0 0.0 56 - 60 0 N/A 0.0 0.0 51 - 55 0 N/A 0.0 0.0 < 50 0 N/A 0.0 0.0 Total REM NREM Awake <50% 0.0 min. 0.0 min. 0.0 min. 0.0 min. 51 - 60% 0.0 min. 0.0 min. 0.0 min. 0.0 min. 61 - 70% 0.0 min. 0.0 min. 0.0 min. 0.0 min. 71 - 80% 0.2 min. 0.0 min. 0.0 min. 0.2 min. 81 - 90% 50.9 min. 0.8 min. 38.6 min. 11.6 min. 91 - 100% 316.7 min. 18.8 min. 172.9 min. 125.1 min. Average 93 93 92 93 Minimum SpO2 77 90 88 77 Desaturation Event Index 0.0 0.0 0.0 0.0 # Desat. Events below 89% 0 0 0 0 Time(%) with Saturation below 89% 3.6 0.0 3.2 0.5 Time(min.) with Saturation below 89% 13.4 0.0 11.7 1.7 Heart Rate Analysis End Tidal CO2 Analysis Min (bpm) Max (bpm) Average (bpm) TSP (mins) % of TSP Awake 50 84 60 Above 55 mmHg 0.0 0.0 NREM 47 62 52 50-55 mmHg 0.0 0.0 REM 49 67 59 45-50 mmHg 231.0 100.0 Overall 47 67 53 40-45 mmHg 0.0 0.0 35-40 mmHg 0.0 0.0 30-35 mmHg 0.0 0.0 Average ETCO2 0.0 Supplemental O2 Values Minimum O2 level: None Value Start Time End Time Chin Strap Cutter Comments PAP Study: Mr. Pearson slept in the right, and left, positions. No cardiac arrhythmia or PLM's noted. No bruxism noted. CPAP was initiated at +4 CMH2O and up-titrated to an optimal level of +6 CMH2O, which nearly eliminated all respiratory events and snoring. A medium Res Med Air Fit N20 was used during titration Mr. Pearson awoke to use the restroom 4 times during the night. Mr. Pearson stated, I did sleep as well as I do when I am in my own bed. The final report will be interpreted and signed by a sleep physician. The completed physician report will then be placed in the patient medical record. Mr. Pearson choose a nasal mask, he tolerated it well once he was a sleep. he did wake 4 times to use the restroom. Patient has a constant tremor in his left foot. Increases were made for snoring. Therapy Event: Therapy (cm H20) 4 5 6 Total Time at Pressure (min.) 194.3 120.1 88.1 TST at Pressure (min.) 87.8 72.7 70.5 # Periods 1 1 1 Sleep Onset (min.) 81.0 0.0 0.1 REM Onset (min.) N/A N/A 52.1 Sleep Efficiency % 45 60 80 Wakefulness (%) 54.8 39.5 20.0 Wakefulness (min.) 106.5 47.4 17.6 NREM 1 (%) 6.9 5.8 1.1 NREM 1 (min.) 13.5 7.0 1.0 NREM 2 (%) 38.3 54.7 56.8 NREM 2 (min.) 74.3 65.7 50.0 NREM 3 (%) 0.0 0.0 0.0 NREM 3 (min.) 0.0 0.0 0.0 REM (%) 0.0 0.0 22.1 REM (min.) 0.0 0.0 19.5 # Arousals 19 17 24 Arousal Index 13.0 14.0 20.4 # Snore 428 163 39 Snore Index 292.3 134.6 33.2 AHI 0.0 0.8 0.0 AHI Supine N/A N/A N/A AHI Non-Supine 0.0 0.8 0.0 NREM AHI 0.0 0.8 0.0 REM AHI N/A N/A 0.0 RDI 0.0 0.8 0.0 # Obstructive 0 1 0 # Central Ap 0 0 0 # Mixed 0 0 0 # Hypopneas 0 0 0 RERAS 0 0 0 Total Respiratory Events 0 1 0 Time Below SpO2 89.00% (min.) 11.7 0.0 0.0 Mean NREM SpO2 (%) 91 94 92 Mean REM SpO2 (%) N/A N/A 93 Mean Sleep SpO2 (%) 91 94 92 Min NREM SpO2 (%) 88 90 90 Min REM SpO2 (%) N/A N/A 90 Position Supine (min.) 0.0 0.0 0.0 Position Non-supine (min.) 87.8 72.7 70.5 LM Index Sleep 8.9 5.0 13.6 LM Index NREM 8.9 5.0 4.7 LM Index REM N/A N/A 36.9 Mean Heart Rate (bpm) 54 51 53 Min Heart Rate (bpm) 47 47 48
--- NOTE | 2017-10-27 17:08 | POLYSOMNOGRAPH REPORT ---
CLINICAL DATA: A 62-year-old male with BMI of 28.[address] Knowles for CPAP titration study. He had a baseline study done in August 2017 which showed moderate SHARMAINE with an AHI of 20. SLEEP ARCHITECTURE: Total sleep period was 309.5 minutes. Total sleep time was 231 minutes divided between 211.5 minutes of non-REM sleep and 19.5 minutes of REM sleep. Sleep onset latency was 81 minutes. REM latency was 285.5 minutes. Sleep efficiency was reduced at 57%. Wake after sleep onset was elevated at 91 minutes. Sleep consisted of stage N1 9%, stage N2 82%, and REM 8%. AROUSAL DATA: Sixty arousals were recorded for an index of 16 per hour. Forty-seven were spontaneous. PLM DATA: Thirty-five limb movements during sleep were noted for an index of 9 per hour with arousal index of 0.5 per hour. RESPIRATORY DATA: The AHI was 0.3. There was 1 obstructive apneic episode 15.5 seconds in duration. OXIMETRY DATA: No hypoxemia was seen. Oxygen krystian was 88%. Mean saturation was 93%. EKG: Heart rates ranged from 47 to 67 beats per minute. No arrhythmias were noted. TILE ERECTOR'S COMMENTS AND TREATMENT SUMMARY: The patient slept in the right and left positions. He used a ResMed AirFit N20 mask. He was started on CPAP and was titrated up to the final pressure setting of 6 cm of water pressure. At that setting, he slept for 70.5 minutes with an AHI of 0. IMPRESSION: Moderate sleep apnea/hypopnea corrected with CPAP 6 cm water pressure, medium ResMed AirFit N20 mask. RECOMMENDATIONS: The patient should be started on the above noted treatment regimen and seen back in followup within 90 days to document efficacy and compliance. DENIS
== END | disposition home or self-care (01) ==
LOC: C.NEUR 21:00
PROVIDERS: ATTEND Internal Medicine
DX: G47.30 Sleep apnea, unspecified (principal)

== ENCOUNTER → 2017-10-29 | Outpatient (CLI) | payer OTHER ==
[2017-10-29 13:03] LABS: INR 2.8 (0.9-1.1)
== END | disposition home or self-care (01) ==
LOC: C.LABWYN 09:11
PROVIDERS: ATTEND Internal Medicine
DX: I82.409 Acute embolism and thrombosis of unspecified deep veins of unspecified lower extremity (principal); I26.99 Other pulmonary embolism without acute cor pulmonale

== ENCOUNTER → 2017-11-03 | Outpatient (CLI) | payer OTHER ==
[~2017-11-03] VITALS: Ht 180.3 cm; Wt 94.7 kg
[2017-11-03 14:47] VITALS: BP 151/88; PULSE 61; Ht 180.3 cm; Wt 94.7 kg
== END ==
LOC: C.NEUR 14:20
PROVIDERS: ATTEND Physician Assistant Medical
DX: G47.33 Obstructive sleep apnea (adult) (pediatric) (principal); I67.9 Cerebrovascular disease, unspecified; F31.30 Bipolar disorder, current episode depressed, mild or moderate severity, unspecified

== ENCOUNTER → 2017-11-19 | Outpatient (CLI) | payer OTHER ==
[2017-11-19 13:07] LABS: INR 2.3 (0.9-1.1)
== END | disposition home or self-care (01) ==
LOC: C.LABWYN 12:08
PROVIDERS: ATTEND Internal Medicine
DX: I82.409 Acute embolism and thrombosis of unspecified deep veins of unspecified lower extremity (principal); I26.99 Other pulmonary embolism without acute cor pulmonale

== ENCOUNTER → 2018-02-02 | Outpatient (CLI) | payer OTHER ==
[~2018-02-02] VITALS: Ht 180.3 cm; Wt 92.9 kg
[2018-02-02 14:56] VITALS: BP 139/80; PULSE 73; Ht 180.3 cm; Wt 92.9 kg
== END | disposition home or self-care (01) ==
LOC: C.NEUR 13:25
PROVIDERS: ATTEND Internal Medicine Pulmonary Disease
DX: G47.33 Obstructive sleep apnea (adult) (pediatric) (principal); G20 Parkinson's disease; I67.9 Cerebrovascular disease, unspecified; K21.9 Gastro-esophageal reflux disease without esophagitis; N18.3 Chronic kidney disease, stage 3 (moderate); I10 Essential (primary) hypertension; E78.00 Pure hypercholesterolemia, unspecified; Z91.040 Latex allergy status

== ENCOUNTER → 2018-02-09 | Outpatient (CLI) | payer OTHER ==
[2018-02-09 14:07] LABS: BLOOD UREA NITROGEN 34 mg/dl (7-18); CALCIUM 8.9 mg/dl (8.5-10.1); CARBON DIOXIDE 24 mmol/L (21-32); CREATININE 3.57 mg/dl (0.60-1.40); GLUCOSE 105 mg/dl (70-99); POTASSIUM 4.2 mmol/L (3.5-5.1); SODIUM 139 mmol/L (136-145)
[2018-02-09 14:11] LABS: CHOLESTEROL 180 mg/dl (0-200); LDL CHOLESTEROL CALCULATED 89 mg/dl
== END | disposition home or self-care (01) ==
LOC: C.LABWYN 17:28
PROVIDERS: ATTEND Student in an Organized Health Care Education/Training Program
DX: Z79.899 Other long term (current) drug therapy (principal)

== ENCOUNTER → 2018-02-11 | Outpatient (CLI) | payer OTHER ==
[2018-02-11 13:31] LABS: INR 3.5 (0.9-1.1)
== END | disposition home or self-care (01) ==
LOC: C.LABWYN 17:57
PROVIDERS: ATTEND Internal Medicine
DX: I82.409 Acute embolism and thrombosis of unspecified deep veins of unspecified lower extremity (principal); I26.99 Other pulmonary embolism without acute cor pulmonale

== ENCOUNTER → 2018-02-18 | Outpatient (CLI) | payer OTHER ==
[2018-02-18 12:40] LABS: INR 1.8 (0.9-1.1)
== END | disposition home or self-care (01) ==
LOC: C.LABWYN 10:41
PROVIDERS: ATTEND Internal Medicine
DX: I82.409 Acute embolism and thrombosis of unspecified deep veins of unspecified lower extremity (principal); I26.99 Other pulmonary embolism without acute cor pulmonale

== ENCOUNTER → 2018-04-28 | Outpatient (CLI) | payer OTHER ==
[2018-04-27 13:18] LABS: INR 7.8 (0.9-1.1)
[~2018-04-28] MED LIST changes: +ACET-1311 PO; +ACET-1693 PO; +AMLO10TA3 PO; +CARB0.5D28 OPB; -COCO1OIL2 PO; -FERR325T5 PO; +IMD/2 PO; +LAMO100T16 PO; -LAMO150T PO; +LTHSR/300 PO; -NIFE60TA57 PO; +ONDA4TAB46 PO; +THROLOZ22 PO; -TRIA1SPR4 NAE; +WARF3TAB6 PO; -WARF4TAB PO; +ZIPR60CA PO
== END | disposition home or self-care (01) ==
LOC: C.LABWYN 17:03
PROVIDERS: ATTEND Internal Medicine
DX: Z51.81 Encounter for therapeutic drug level monitoring (principal); Z79.01 Long term (current) use of anticoagulants

== ENCOUNTER → 2018-04-29 | Outpatient (CLI) | payer OTHER ==
[2018-04-29 13:42] LABS: INR 4.9 (0.9-1.1)
== END | disposition home or self-care (01) ==
LOC: C.LABWYN 11:19
PROVIDERS: ATTEND Internal Medicine
DX: I48.91 Unspecified atrial fibrillation (principal); Z79.01 Long term (current) use of anticoagulants

== ENCOUNTER → 2018-05-04 | Outpatient (CLI) | payer OTHER ==
[2018-05-04 13:24] LABS: INR 1.8 (0.9-1.1)
== END | disposition home or self-care (01) ==
LOC: C.LABWYN 16:29
PROVIDERS: ATTEND Internal Medicine
DX: I82.409 Acute embolism and thrombosis of unspecified deep veins of unspecified lower extremity (principal); I26.99 Other pulmonary embolism without acute cor pulmonale; Z79.01 Long term (current) use of anticoagulants

== ENCOUNTER → 2018-05-11 | Outpatient (CLI) | payer OTHER ==
[2018-05-11 13:22] LABS: INR 4.6 (0.9-1.1)
== END | disposition home or self-care (01) ==
LOC: C.LABWYN 15:15
PROVIDERS: ATTEND Internal Medicine
DX: I82.401 Acute embolism and thrombosis of unspecified deep veins of right lower extremity (principal)

== ENCOUNTER → 2018-05-14 | Outpatient (CLI) | payer OTHER ==
[2018-05-14 09:37] LABS: INR 2.5 (0.9-1.1)
== END | disposition home or self-care (01) ==
LOC: C.LABWYN 08:55
PROVIDERS: ATTEND Internal Medicine
DX: I82.409 Acute embolism and thrombosis of unspecified deep veins of unspecified lower extremity (principal)

== ENCOUNTER → 2018-05-20 | Outpatient (CLI) | payer OTHER | END | disposition home or self-care (01) | LOC: C.LABWYN 15:34 | PROVIDERS: ATTEND Internal Medicine | DX: I82.409 Acute embolism and thrombosis of unspecified deep veins of unspecified lower extremity (principal); I26.99 Other pulmonary embolism without acute cor pulmonale ==

== ENCOUNTER → 2018-05-26 | Outpatient (CLI) | payer OTHER ==
[2018-05-26 09:40] LABS: INR 1.4 (0.9-1.1)
== END | disposition home or self-care (01) ==
LOC: C.LABWYN 08:35
PROVIDERS: ATTEND Internal Medicine
DX: I82.409 Acute embolism and thrombosis of unspecified deep veins of unspecified lower extremity (principal); I26.99 Other pulmonary embolism without acute cor pulmonale

== ENCOUNTER → 2018-05-28 | Outpatient (CLI) | payer OTHER ==
[2018-05-28 08:55] LABS: INR 1.9 (0.9-1.1)
== END | disposition home or self-care (01) ==
LOC: C.LABWYN 08:23
PROVIDERS: ATTEND Internal Medicine
DX: I82.409 Acute embolism and thrombosis of unspecified deep veins of unspecified lower extremity (principal); I26.99 Other pulmonary embolism without acute cor pulmonale

== ENCOUNTER → 2018-05-31 | Outpatient (CLI) | payer OTHER ==
[2018-05-31 10:00] LABS: BLOOD UREA NITROGEN 27 mg/dl (7-18); CALCIUM 9.1 mg/dl (8.5-10.1); CARBON DIOXIDE 26 mmol/L (21-32); CREATININE 2.91 mg/dl (0.60-1.40); GLUCOSE 99 mg/dl (70-99); POTASSIUM 4.5 mmol/L (3.5-5.1); SODIUM 141 mmol/L (136-145)
== END | disposition home or self-care (01) ==
LOC: C.LABWYN 09:05
PROVIDERS: ATTEND Student in an Organized Health Care Education/Training Program
DX: I26.99 Other pulmonary embolism without acute cor pulmonale (principal); I82.409 Acute embolism and thrombosis of unspecified deep veins of unspecified lower extremity; Z51.81 Encounter for therapeutic drug level monitoring; Z79.899 Other long term (current) drug therapy